=== PATIENT | female | born 1990 | race Hispanic/Latino ===

== ENCOUNTER 2021-07-01 20:32 | Outpatient (CLI) | payer OTHER ==
[~2021-07-01] VITALS: Ht 180.3 cm; Wt 76.9 kg
[2021-07-01 21:00] VITALS: BP 119/67
== END 2021-07-01 22:06 | disposition home or self-care (01) ==
LOC: M LDO 20:32
PROVIDERS: ATTEND Obstetrics & Gynecology
DX: O60.03 Preterm labor without delivery, third trimester (principal); Z3A.39 39 weeks gestation of pregnancy
CPT/HCPCS: 59025; G0378; G0463

== ENCOUNTER 2021-07-09 07:44 | Inpatient (IN) | payer OTHER ==
[~2021-07-09] VITALS: Ht 180.3 cm; Wt 78.6 kg
[2021-07-09] VITALS (26 sets, daily range): BP systolic 102–141; BP diastolic 57–85
[2021-07-09] MEDS ORDERED: PRENTAB9 PO (08:12)
[2021-07-09] MEDS ORDERED: HOME MED LIST COMPLETE! XX SCH (08:15)
[2021-07-09 09:44] LABS: HEMATOCRIT 35.7 % (36.0-47.0); HEMOGLOBIN 12.3 g/dl (12.0-15.5); MEAN CORPUSCULAR HEMOGLOBIN 25.7 pg (27.0-33.0); MEAN CORPUSCULAR HGB CONC 34.5 g/dl (32.0-36.5); MEAN CORPUSCULAR VOLUME 74.7 fl (80.0-96.0); PLATELET COUNT, AUTOMATED 252 10^3/uL (150-450); RED BLOOD COUNT 4.78 10^6/uL (4.00-5.40); WHITE BLOOD COUNT 10.9 10^3/uL (4.0-10.0)
[2021-07-09] MEDS ORDERED: OXYTOCIN DRIP 30 UNITS in IV 1 EA IV PRN ×4 (10:10)
[2021-07-09] MEDS ORDERED: OXYTOCIN DRIP 30 UNITS in IV 1 EA IV SCH (10:10)
--- NOTE | 2021-07-09 10:26 | HPEPDOC ---
Obstetrical History & Physical General Date of Admission Jul 09, 2021 at 07:44 History of Present Illness 30yo G1 at 41+0 by LMP consistent with 1st trimester ultrasound presents for induction of labor for late term gestation. Denies vaginal bleeding, loss of fluid. Feels irregular mild contractions. Endorses positive movement. Chief Complaint: Induction of labor Information Provided By: Patient, Other (chart) Care Care: Good Care Dating Final EDC: Jul 02, 2021 Final EDC by: LMP LMP: Sep 25, 2020 Antepartum Course Height (inches): 71 Pre- weight (lbs.): 140 Admission Weight (lbs.): 168 Change in Weight (lbs.): 28 Past Medical History Past Obstetrical History : Past Obstetrical History: [employer] EMPLOYEE History: No pertinent history Past Medical History Medical History Migraines Surgical History: Other (breast implants) Family History Family History Maternal grandmother: cancer Maternal grandfather: cancer Paternal grandfather: Parkinson disease Social History Marital Status: Family situation: Spouse/partner home Psychosocial History: No pertinent psych hx * Smoker: non-smoker Alcohol: Denies Drugs: denies Abuse Violence Screening Have you been hit/kicked/slapp: No Have you been sexually assault: No Imunizations Tdap status: current Influenza Status: current Allergies Coded Allergies: No Known Allergies (Unverified , 07/09/21) Medications Scheduled No.137/Iron/Folic Acd ( Vitamin Tablet) 1 Each Tablet, 1 TAB PO DAILY Physical Examination Physical Examination GENERAL: Alert and oriented times three. ABDOMEN: Gravid and non-tender to touch. EFW 3400g FETUS: Is vertex (VTX) by sterile vaginal examination (SVE) and ultrasound HEART RATE: Regular rate LUNGS: nonlabored breathing EXTREMITIES: No edema. Vital Signs/I&O Vital Signs Date Time Temp Pulse Resp B/P (MAP) Pulse Ox O2 Delivery O2 Flow Rate FiO2 07/09/21 08:06 98.3 113 16 114/74 (87) 99 Room Air Laboratory Data 24H LABS Laboratory Tests 2 07/09/21 07:55: Serology Scanned Report Hepatitis B Testing 07/09/21 09:24: Nucleated Red Blood Cells % (auto) 0.0 CBC/BMP Laboratory Tests 07/09/21 09:24 Pertinent Laboratoy Data Blood Type: A+ RBC Antibody Screen: Negative HIV: Negative Hepatitis B: Negative Rapid Plasma Reagin: Nonreactive Rubella: Immune Varicella: Nonreactive Chlamydia/Gonorrhea: Negative Group B Streptococcus: Negative Cystic Fibrosis: Negative Glucose Tolerance Test: 116 Anatomy Ultrasound Ultrasound Date: Feb 14, 2021 Placenta Location: Anterior Normal Anatomy: Yes Placenta Previa: No Steroid Therapy Steroid Therapy: No Vaginal Examination Dilation: 3 cm Effacement: 50% Station: -3 Cervical Consistency: Medium Cervical Position: Middle Presentation: Cephalic presentation Assessment Heart Rate (FHR): 140 Variability: Moderate Accelerations: Positive Decelerations: None Tocometer Contractions: Yes Frequency: regular, every 3-7 min. Multi-drug resistant Organism: No history of MDRO Assessment/Plan Assessment 30yo G1 at 41+0 by LMP consistent with 1st trimester ultrasound presents for induction of labor for late term gestation. Presents to Labor and Delivery (L&D) for induction of labor for late term gestation. EFW 3400g, cervix 3/50/-3, category I tracing. Plan Admit and orient. Medicaid Plan Compliance Director and consent. Diet: clear liquid Group B Streptococcus (GBS) negative. Labs and intravenous (IV) per unit protocol. Counseled on cytotec/Pitocin/rupture of membranes and induction of labor (IOL). Lactated Ringers (LR): at 125 mL/hr. Anticipate [normal spontaneous delivery ()]. C-S as appropriate. Labor and Delivery Counseling I counseled her on the risks of vaginal delivery including but not limited to infection, bleeding. Described hemorrhage response in detail including need for blood transfusion and hysterectomy as life saving measures. Described cytotec/oxytocin/rupture of membranes labor induction/augmentation process and continuous monitoring. Described indications for delivery, forceps and vacuum deliveries. Risks of delivery including bleeding, infection, damage to nearby structures. Talked about shoulder dystocia and necessary measures including possible intentional breaking of clavicle or other bones to save the baby. She indicated understanding and all questions were answered. BRIANNA ACKERMAN DO Jul 09, 2021 10:26
[2021-07-09] MEDS: LR 1,000 ML IV SCH ×3 (10:40→18:39)
--- NOTE | 2021-07-09 14:31 | IPNPDOC ---
Obstetrical Progress Note Date of Service Jul 09, 2021 Subjective Roslyn Yanez was seen i n her room for a labor check. She is feeling her contractions, declines pain management at this time. No complaints. Objective Vital Signs Date Time Temp Pulse Resp B/P (MAP) Pulse Ox O2 Delivery O2 Flow Rate FiO2 07/09/21 14:01 95 20 113/70 (84) 07/09/21 12:35 97.6 99 Room Air Assessment Heart Rate (FHR): 145 Variability: Moderate Accelerations: Positive Decelerations: None Heart Rate Tracing: Category I Tocometer Contractions: Yes Frequency: regular, every 2-5 min. Sterile Vaginal Examination Dilation: 3 cm Effacement (%): 50% Station: -3 Cervical Consistency: Soft Cervical Position: Anterior Postion/Presentation: Cephalic presentation Assessment and Plan Age: 30 : 1 Term: 0 Pre-term: 0 Abortions: 0 Livin Weeks & Days 41+0 Status: Reassuring Group B Streptococcus: Negative Anticipate: Vaginal Delivery Additional Comments No change since admission exam, pitocin at 10, anna regularly. Discussed early amniotomy vs continued pitocin administration and patient is in agreement with continued pitocin administration. -continue pitocin titration - routine intrapartum care -reevaluate labor in 4-6 hours or sooner as needed BRIANNA ACKERMAN DO Jul 09, 2021 14:31
[2021-07-09] MEDS ORDERED: FENTANYL 2MCG/ML ROPIVACAINE 0.2% IN 0.9% NACL 100ML IVBAG As Ordered ONE (15:40)
[2021-07-09] MEDS ORDERED: REFRIGERATOR IV KEYS XX PRN (16:05)
[2021-07-09] MEDS ORDERED: EPIDURAL/PCA KEYS XX PRN (16:05)
[2021-07-09] MEDS ORDERED: LACTATED RINGER'S 1000 ML IV PRN (16:05)
[2021-07-09] MEDS ORDERED: diphenhydrAMINE 50MG/ML VIAL (J1200) IV PRN (16:05)
[2021-07-09] MEDS ORDERED: EPIDURAL COMMENT XX SCH (16:05)
[2021-07-09] MEDS ORDERED: ePHEDrine SULFATE 25 MG/5 ML(5MG/ML) SYRINGE IV PRN (16:05)
[2021-07-09] MEDS ORDERED: FENTANYL/ROPIVACAINE/NACL BAG 100 ML EPIDURAL SCH (16:05)
[2021-07-09] MEDS ORDERED: NALOXONE INJ 0.4MG/1ML VIAL (J2310 PER 1MG) IV PRN (16:05)
[2021-07-09] MEDS ORDERED: ONDANSETRON 4MG/2ML VIAL IV PRN ×2 (16:05→20:40)
--- NOTE | 2021-07-09 18:29 | IPNPDOC ---
Obstetrical Progress Note Date of Service Jul 09, 2021 Subjective Roslyn Yanez is doing well, her epidural is providing good relief. She reports feeling the urge to push. Objective Vital Signs Date Time Temp Pulse Resp B/P (MAP) Pulse Ox O2 Delivery O2 Flow Rate FiO2 07/09/21 17:04 71 20 102/67 (79) 07/09/21 16:32 98.4 07/09/21 16:12 100 Room Air Assessment Heart Rate (FHR): 150 Variability: Moderate Accelerations: Positive Decelerations: None Heart Rate Tracing: Category I Tocometer Contractions: Yes Frequency: regular, every 2-5 min. Sterile Vaginal Examination Dilation: complete Effacement (%): 100% Station: -1, 0 Postion/Presentation: Cephalic presentation Assessment and Plan Age: 30 : 1 Term: 0 Pre-term: 0 Abortions: 0 Livin Weeks & Days 41+0 Status: Reassuring Group B Streptococcus: Negative Anticipate: Vaginal Delivery Additional Comments Discussed r/b/a to amniotomy including cord prolapse with emergent delivery, she agreed to amniotomy which was performed with clear fluid noted and bloody show. Test push performed with good descent. Will continue pushing to delivery. DO MEKA Garcia BRADLEY J. DO Jul 09, 2021 18:29
[2021-07-09 19:48] LABS: CORD GAS ABE V -6.3; CORD GAS HCO3 V 20.4 MEQ/L; CORD GAS O2 SAT V 56.1 %; CORD GAS PCO2 V 44.6 mmHg; CORD GAS PH A 7.159 UNITS; CORD GAS PH V 7.278 UNITS; CORD GAS PO2 V 28.1 mmHg; CORD GAS SBC V 18.4 MEQ/L; CORD GAS TCO2 V 21.8 MEQ/L
[2021-07-09 19:49] LABS: CORD GAS ABE A -7.9; CORD GAS PCO2 A 63.2 mmHg; CORD GAS PO2 A 27.3 mmHg; CORD GAS SBC A 17.1 MEQ/L; CORD GAS TCO2 A 23.9 MEQ/L
[2021-07-09] MEDS ORDERED: PROMETHAZINE 25 MG TAB PO PRN (20:40)
[2021-07-09] MEDS ORDERED: DIBUCAINE 1% OINTMENT 30GM TOP PRN (20:40)
[2021-07-09] MEDS ORDERED: DOCUSATE SODIUM 100MG CAPSULE PO PRN (20:40)
[2021-07-09] MEDS ORDERED: METHYLERGONOVINE MALEATE 0.2 MG TAB PO PRN (20:40)
[2021-07-09] MEDS ORDERED: MEASLES,MUMPS,RUBELLA VACCINE INJ (MMR-II) (90707) SC SCH (20:40)
[2021-07-09] MEDS ORDERED: LR 1,000 ML IV SCH (20:40)
[2021-07-09] MEDS ORDERED: RHOGAM 300 MCG (1500 IU) INJ (J2790) IM SCH (20:40)
--- NOTE | 2021-07-09 20:52 | DNPDOC ---
[facility] Delivery Note Delivery Note DATE OF DELIVERY: [id number] PREDELIVERY DIAGNOSIS: 41+0 weeks' gestation and induction of labor for post- term gestation POST DELIVERY DIAGNOSIS: Delivered. PROCEDURE: Spontaneous vaginal delivery NITRIC ACID CONCENTRATOR OPERATOR: Ankur Wong DO ANESTHESIA: epidural ESTIMATED BLOOD LOSS: 350 mL. FINDINGS: 8 pound 10 ounce 3900g infant, Score 4/6/8 DELIVERY SUMMARY: Roslyn Yanez is a 30-year-old 1 now para 1001. After achieving complete dilation pushing was initiated and the head reached +3 station. Over the next several pushes the head delivered however the anterior shoulder did not deliver. I could see and feel the anterior shoulder so I did not believe it to be a shoulder dystocia; with the next several pushes very slow progress was made and a tight nuchal cord was disc overed. Manual reduction over the head was unsuccessful. Attempting to push the cord over the shoulders and deliver through was also unsuccessful. It became clear that the tight nuchal was preventing delivery. I delivered until both shoulders were free so I knew the corpus was free to deliver and then clamped the tight nuchal and cut it. This freed the fetus and delivery was completed. Total time from head delivery until body delivery was 1 minute 30 seconds. The was taken to the warmer for resuscitation. Good cry was noted. With gentle cord traction the placenta was then delivered, inspected and found to be intact. Inspection of the perineum revealed a second degree midline laceration with interrupted 3-0 vicryl. Hemostasis was noted. All counts were correct. The was transferred to the NICU for evaluation due to grunting and increased work of breathing. Mother was in good condition and I left the room. Arterial blood gas 7.15, base excess -7.9 Venous blood gas 7.27, base excess -6.3 DO MEKA Garcia BRADLEY J. DO Jul 09, 2021 20:43
[2021-07-09] MEDS: ACETAMINOPHEN 500 MG TAB PO SCH (22:48)
[2021-07-09] MEDS: IBUPROFEN 800 MG TAB PO SCH (22:49)
[2021-07-10] MEDS: ACETAMINOPHEN 500 MG TAB PO SCH ×4 (02:45→20:22)
[2021-07-10] MEDS: IBUPROFEN 800 MG TAB PO SCH ×3 (05:40→21:45)
[2021-07-10 06:00] VITALS: BP 118/57
--- NOTE | 2021-07-10 06:57 | IPNPDOC ---
Progress Note Date of Service: Jul 10, 2021 Day#: 1 Progress Note DATE OF DELIVERY: [id number] PREDELIVERY DIAGNOSIS: 41+0 weeks' gestation and induction of labor for post- term gestation POST DELIVERY DIAGNOSIS: Delivered. PROCEDURE: Spontaneous vaginal delivery LAND SURVEYOR ASSISTANT: Brianna Wong DO ANESTHESIA: epidural ESTIMATED BLOOD LOSS: 350 mL. FINDINGS: 8 pound 10 ounce 3900g , Score 4/6/8 DELIVERY SUMMARY: Roslyn Yanez is a 30-year-old 1 now para 1001. After achieving complete dilation pushing was initiated and the head reached +3 station. Over the next several pushes the head delivered however the anterior shoulder did not deliver. I could see and feel the anterior shoulder so I did not believe it to be a shoulder dystocia; with the next several pushes very slow progress was made and a tight nuchal cord was discovered. Manual reduction over the head was unsuccessful. Attempting to push the cord over the shoulders and deliver through was also unsuccessful. It became clear that the tight nuchal was preventing delivery. I delivered until both shoulders were free so I knew the corpus was free to deliver and then clamped the tight nuchal and cut it. This freed the fetus and delivery was completed. Total time from head delivery until body delivery was 1 minute 30 seconds. The was taken to the warmer for resuscitation. Good cry was noted. With gentle cord traction the placenta was then delivered, inspected and found to be intact. Inspection of the perineum revealed a second degree midline laceration with interrupted 3-0 vicryl. Hemostasis was noted. All counts were correct. The was transferred to the NICU for evaluation due to grunting and increased work of breathing. Mother was in good condition and I left the room. Arterial blood gas 7.15, base excess -7.9 Venous blood gas 7.27, base excess -6.3 The above delivery summary is included for continuity/completeness. SUBJECT: Roslyn Yanez is a 30-year-old 1 now Para 1001 status post uncomplicated spontaneous vaginal delivery at 41+0 weeks' at approximately 1929 hours on 20JUL2021 of a female 8 pounds 10 ounces (3900 grams) with 2MLL vaginal laceration and repair, doing well day # 1. She has been ambulating, voiding spontaneously without issue and tolerating regular diet. Pumping and requesting manpower development specialist. Reports lochia is like a normal period. Baby is in the NICU for respiratory support. OBJECTIVE: VITAL SIGNS: Within normal limits, afebrile. Alert and oriented times three. Nonlabored breathing Heart rate: Regular rate Abdomen: Fundus firm at U-2. Soft, NTTP. Negative calf tenderness bilaterally ASSESSMENT: As above doing well on day 1. Vitals within normal limits, afebrile, hemodynamically stable with no evidence of infection. PLAN: 1. Discharge to home likely tomorrow; would consider boarding status if baby still in NICU. 2. Tylenol and Motrin for pain. 3. Encourage pumping and ambulation, manpower development specialist consulted. 4. Undecided for control 5. Routine PP visit in 6 weeks in clinic. Brianna Wong, VS, I&O, 24H, Cecile Vital Signs/I&O Vital Signs Date Time Temp Pulse Resp B/P (MAP) Pulse Ox O2 Delivery O2 Flow Rate FiO2 07/10/21 06:00 98.3 90 18 118/57 (77) 98 Room Air l I&O- Last 24 Hours up to 6 AM 07/10/21 05:59 Intake Total 3120.0 ml Output Total 2065 ml Balance 1055.0 ml Laboratory Data 24H LABS Laboratory Tests 2 07/09/21 07:55: Serology Scanned Report Hepatitis B Testing 07/09/21 09:24: Nucleated Red Blood Cells % (auto) 0.0, Hepatitis B Surface Antigen NEGATIVEL 07/09/21 19:38: Cord Arterial Blood pH 7.159, Cord Arterial Blood PCO2 63.2, Cord Arterial Blood PO2 27.3, Cord Arterial Blood HCO3 22.0, Cord Arterial Blood Total CO2 23.9, Cord Arterial Blood Base Excess -7.9, Cord Arterial Base Excess (Standard 17.1, Cord Arterial Bld Oxygen Saturation 48.0, Cord Venous Blood pH 7.278, Cord Venous Blood PCO2 44.6, Cord Venous Blood PO2 28.1, Cord Venous Blood HCO3 20.4, Cord Venous Blood Total CO2 21.8, Cord Venous Base Excess (Actual) -6.3, Cord Venous Base Excess (Standard) 18.4, Cord Venous Blood Oxygen Saturation 56.1 CBC/BMP Laboratory Tests 07/09/21 09:24 BRIANNA WONG DO Jul 10, 2021 06:57
[2021-07-10 07:59] LABS: HEMATOCRIT 31.3 % (36.0-47.0); HEMOGLOBIN 10.6 g/dl (12.0-15.5); MEAN CORPUSCULAR HEMOGLOBIN 25.4 pg (27.0-33.0); MEAN CORPUSCULAR HGB CONC 33.9 g/dl (32.0-36.5); MEAN CORPUSCULAR VOLUME 75.1 fl (80.0-96.0); PLATELET COUNT, AUTOMATED 240 10^3/uL (150-450); RED BLOOD COUNT 4.17 10^6/uL (4.00-5.40); WHITE BLOOD COUNT 13.7 10^3/uL (4.0-10.0)
[2021-07-10] MEDS ORDERED: PRENATAL VITAMINS CHEWABLE TABLET PO SCH (09:00)
[2021-07-10] MEDS ORDERED: INFLUENZA QUADRIVALENT PF VACCINE 0.5ML SYRINGE IM ONE (09:00)
[2021-07-10] MEDS: PRENATAL VITAMINS CHEWABLE TABLET PO SCH (09:20)
[2021-07-10 17:42] VITALS: BP 110/59
[2021-07-11] MEDS: ACETAMINOPHEN 500 MG TAB PO SCH ×3 (02:18→14:10)
[2021-07-11] MEDS: IBUPROFEN 800 MG TAB PO SCH ×2 (05:36→14:10)
[2021-07-11 06:00] VITALS: BP 108/69
--- NOTE | 2021-07-11 06:48 | IPNPDOC ---
Progress Note Date of Service: Jul 11, 2021 Day#: 2 Progress Note Ms. Toño Yanez is a 30yo on Day 2 after at 41+0 weeks gestation of infant female. She had a second degree laceration that was repaired following delivery. is currently in the NICU due to respiratory distress after and likely will stay a week. S: States she is doing well. Reports pain well controlled. She is ambulating well, tolerating a regular diet, urinating without difficulty, reports normal bowel activities and has no breast or leg pain. Currently pumping and going for visits to the NICU. Reports moods are stable. Ambulating well, denies dizziness, lightheadedness. O: VS: Vital Signs Label Value Date Time Patient Temperature 97.8 degrees F 07/11/21 06 Temperature Source Temporal 07/11/21 06 Pulse 74 07/11/21 0600 Respiratory Rate 18 bpm 07/11/21 06 Blood Pressure Assessment 108/69 (82) 07/11/21 06 Source Automatic Cuff (NIBP) General: Alert. Well-appearing, in no acute distress. Tired with appropriate responses. PSYCH: Well groomed. Appropriate affect, normal mood. Conversed easily. Neuro: Oriented to time, place, and person. RESP: Lungs clear to auscultation bilaterally without wheezes, rales or rhonchi. Unlabored breathing. CV: Normal RRR, no murmur, c/w normal . No edema to bilateral upper and lower extremities. Negative calf tenderness. ABD: Soft, non-tender. BS normal x4 quad. Fundus: Firm U-1, Fundus non-tender. Lochia: small, rubra, without odor. Perineum: well approximated with mild edema MSK: legs without calf tenderness or edema bilaterally A/P 30yo G 1 P 1 day 2 s/p at 41+0 wks gestation A positive/GBS negative/RI Varicella Non-Immune. Recommend vaccine after discharge. Normal progression, laceration healing well. Pumping breastmilk. Patient interested in boarding for NICU infant however this will depend on staffing and census. VSS Plans condoms for control after discharge. Discharge this evening to home or boarding, to follow up in [employer] clinic in 6- 8wks for PP visit. Discharge teaching completed with patient, see discharge summary. VS, I&O, 24H, Cecile Vital Signs/I&O Vital Signs Date Time Temp Pulse Resp B/P (MAP) Pulse Ox O2 Delivery O2 Flow Rate FiO2 07/11/21 06:00 97.8 74 18 108/69 (82) 07/10/21 17:42 99 Room Air Laboratory Data 24H LABS Laboratory Tests 2 07/10/21 07:44: Nucleated Red Blood Cells % (auto) 0.0 CBC/BMP Laboratory Tests 07/10/21 07:44 JIMBO PAZ CNM Jul 11, 2021 06:47
--- NOTE | 2021-07-11 06:52 | DS.PDOC ---
Discharge Summary General Date of Admission Jul 09, 2021 at 07:44 Date of Discharge Jul 11, 2021 Discharge Summary Date of Admission: 07/09/21 Admission Diagnosis: Induction of Labor at Late Term Delivery Date: 07/09/21 Discharge Diagnosis: Normal spontaneous vaginal delivery Amaya gestation, live infant Second Degree Perineal Laceration, Repaired Nuchal cord, complicating Procedures: Induction External Monitoring Epidural AROM Vaginal Delivery Repair of Laceration Condition on Discharge: Stable Discharged to: Home Hospital Course: Ms. Toño Yanez is a 30 year old G1 now P1 who delivered a viable female at 41+0 weeks gestation via spontaneous vaginal delivery after arriving to unit for induction of labor. A second degree laceration was repaired following delivery. Ms. Toño Yanez has had an uncomplicated course. She has remained afebrile and normotensive with diminishing lochia throughout her stay. She is ambulating well, tolerating a regular diet, urinating without difficulty, reports normal bowel activities and has no breast or leg pain. She is stable and ready for discharge. Day of discharge physical ex am documented in progress note. feeding at discharge is breastmilk - pumping. Planned control is condoms. To follow up in the COMPANY MANAGER clinic in 6-8 weeks. Discharge management time Spent: <30 minutes I saw and evaluated the patient, and completed the documentation personally. -MAJ Obdulia Paz CNM Vital Signs/I&Os Vital Signs Date Time Temp Pulse Resp B/P (MAP) Pulse Ox O2 Delivery O2 Flow Rate FiO2 07/11/21 06:00 97.8 74 18 108/69 (82) 07/10/21 17:42 99 Room Air Laboratory Data Labs 24H Laboratory Tests 2 07/10/21 07:44: Nucleated Red Blood Cells % (auto) 0.0 CBC/BMP Laboratory Tests 07/10/21 07:44 Discharge Medications Scheduled No.137/Iron/Folic Acd ( Vitamin Tablet) 1 Each Tablet, 1 TAB PO DAILY, (Reported) Allergies Coded Allergies: No Known Allergies (Unverified , 07/09/21) OBDULIA PAZ CNM Jul 11, 2021 06:51
[2021-07-11] MEDS: PRENATAL VITAMINS CHEWABLE TABLET PO SCH (08:46)
== END 2021-07-11 17:33 | disposition home or self-care (01) | DRG 807 ==
LOC: M LDI 07:44 → M OBS 22:40
PROVIDERS: ADMIT Obstetrics & Gynecology; ATTEND Obstetrics & Gynecology
PROC: 10E0XZZ Delivery of Products of Conception, External Approach (ICD-10-PCS; principal; 2021-07-09)
PROC: 0KQM0ZZ Repair Perineum Muscle, Open Approach (ICD-10-PCS; 2021-07-09)
PROC: 3E033VJ Introduction of Other Hormone into Peripheral Vein, Percutaneous Approach (ICD-10-PCS; 2021-07-09)
PROC: 10907ZC Drainage of Amniotic Fluid, Therapeutic from Products of Conception, Via Natural or Artificial Opening (ICD-10-PCS; 2021-07-09)
DX: O48.0 Post-term pregnancy (principal); Z37.0 Single live birth; Z3A.41 41 weeks gestation of pregnancy; O69.1XX0 Labor and delivery complicated by cord around neck, with compression, not applicable or unspecified; O70.1 Second degree perineal laceration during delivery

== ENCOUNTER 2021-07-18 19:13 | Emergency (ER) | payer OTHER ==
[~2021-07-18] VITALS: Ht 180.3 cm; Wt 69.1 kg
[~2021-07-18 19:13] MED LIST: PRENTAB9 PO
[2021-07-18 19:14] VITALS: BP 134/73
== END 2021-07-18 21:50 | disposition left against medical advice (07) ==
LOC: M ED 19:13
DX: Z53.21 Procedure and treatment not carried out due to patient leaving prior to being seen by health care provider (principal)

== ENCOUNTER → 2022-03-27 | Outpatient (CLI) | payer OTHER | LOC: M RAD 13:23 | PROVIDERS: ATTEND Physician Assistant Medical | DX: M79.671 Pain in right foot (principal); M79.672 Pain in left foot ==

== ENCOUNTER → 2022-04-11 | Outpatient (CLI) | payer OTHER | LOC: M WUC 09:48 | PROVIDERS: ATTEND Physician Assistant | DX: M79.671 Pain in right foot (principal) ==